=== PATIENT | female | born 1960 | race Caucasian/White ===

== ENCOUNTER → 2017-04-26 | Outpatient (CLI) | payer OTHER ==
[~2017-04-26] MED LIST: ASPI81TA25 PO; VERA1TAB53 PO
--- NOTE | 2017-04-26 13:35 | MAMMOGRAPHY REPORT ---
BILATERAL DIGITAL SCREENING MAMMOGRAM TOMOSYNTHESIS WITH CAD: 04/26/2017 CLINICAL HISTORY: Routine screening. Patient has no complaints. TECHNIQUE: Breast tomosynthesis in addition to standard 2D mammography was performed. Current study was also evaluated with a Computer Aided Detection (CAD) system. COMPARISON: Comparison is made to exams dated: 04/20/2016 mammogram, 04/15/2015 mammogram, 04/09/2014 ma mmogram, 04/03/2013 mammogram, 03/28/2012 mammogram, and 05/03/2005 mammogram - [facility]. BREAST COMPOSITION: The tissue of both breasts is almost entirely fatty. FINDINGS: No suspicious masses, calcifications, or areas of architectural distortion are noted in ei ther breast. There has been no significant interval change compared to prior exams. IMPRESSION: ACR BI-RADS CATEGORY 1: NEGATIVE There is no mammographic evidence of malignancy. A 1 year screening mammogram is recommended. The pa tient will receive written notification of the results. Approximately 10% of breast cancers are not detected with mammography. A negative mammographic report should not delay biopsy if a clinically suggestive mass is present. Vivi Saini M.D. /:04/26/2017 08:28:26 Design Eng: Pau KAM(Racheal)(Meir)(BD), [facility] letter sent: Normal 1/2 BI-RADS Code: ACR BI-RADS Category 1: Negative
== END | disposition home or self-care (01) ==
LOC: C.MAMM 08:02
PROVIDERS: ATTEND Internal Medicine
DX: Z12.31 Encounter for screening mammogram for malignant neoplasm of breast (principal)

== ENCOUNTER 2022-11-27 07:58 | Observation (INO) ==
--- NOTE | 2022-11-05 10:11 | PAT Medication Instructions ---
Medication Instructions Date of Service November 05, 2022 Home Medications albuterol sulfate 90 mcg/actuation breath activated powder inhaler 1 inh inhalation QID PRN amitriptyline 25 mg tablet 25 mg PO HS PRN aspirin 81 mg tablet,delayed release 81 mg PO QAM atorvastatin 40 mg tablet 40 mg PO QAM duloxetine 20 mg capsule,delayed release 20 mg PO BID omeprazole 20 mg capsule,delayed release 40 mg PO QAM amlodipine 2.5 mg tablet 2.5 mg PO DAILY amlodipine 5 mg tablet 5 mg PO QAM cholecalciferol (vitamin D3) 25 mcg (1,000 unit) capsule (Vitamin D3) 25 mcg PO QAM valsartan 160 mg tablet 160 mg PO QAM Continue as directed amlodipine 2.5 mg tablet 2.5 mg PO DAILY DO NOT take the morning of surgery cholecalciferol (vitamin D3) 25 mcg (1,000 unit) capsule (Vitamin D3) 25 mcg PO QAM valsartan 160 mg tablet 160 mg PO QAM Take morning of surgery With a small sip of water, OTHERWISE NOTHING TO EAT OR DRINK AFTER MIDNIGHT: albuterol sulfate 90 mcg/actuation breath activated powder inhaler 1 inh inhalation QID PRN(use if needed; please bring with you to hospital day of surgery if possible) aspirin 81 mg tablet,delayed release 81 mg PO QAM (unless directed otherwise by surgeon) atorvastatin 40 mg tablet 40 mg PO QAM duloxetine 20 mg capsule,delayed release 20 mg PO BID omeprazole 20 mg capsule,delayed release 40 mg PO QAM amlodipine 5 mg tablet 5 mg PO QAM Take evening before surgery albuterol sulfate 90 mcg/actuation breath activated powder inhaler 1 inh inhalation QID PRN(if needed) amitriptyline 25 mg tablet 25 mg PO HS PRN(if needed) duloxetine 20 mg capsule,delayed release 20 mg PO BID Other Notes If you have any questions please call us at [phone] or [phone] or [phone] or [phone]
--- NOTE | 2022-11-09 14:33 | Anesthesiology Consultation ---
Date of Service November 09, 2022 Assessment & Plan (1) Encounter for pre-operative examination: - awaiting PCP clearance. Optimization note sent regarding above, patient states will also call PCP regarding symptoms. - lightheadedness: different from usual vertigo. Occasional, ongoing for several weeks-months, denies current symptoms. Denies presyncope. Worsens with knee pain or Claritin dosing. Hx chronic vertigo with improvement with PT. Denies associated dysphagia, difficulty speaking, visual changes, numbness, weakness or headache with lightheadedness. Denies current symptoms. She was advised to contact PCP, seek prompt medical care if recurrence. She verbalized understanding and agreement, denied questions or concerns. - Outpatient joint assessment: Patient is not recommended candidate for outpatient joint program from anesthesia standpoint. Pt aware and agreeable to staying overnight. Surgeon's office notified. Chart Review Chart Review: Pending: Refer to Additional Notes / Consult section and Patient seen in Pre Admission Testing Teaching & Discussion Pre-Anesthesia Teaching/Discussion Notes: Instructed NPO after midnight before surgery, except medications with 15 cc of water. Medication instructions provided according to the PAT guidelines. History Surgery Operation Date: 11/27/22 07:00 Proposed Procedures p Right Total Knee Arthroplasty - Charan Monreal MD Height/Weight Height: 5 ft 7.25 in Weight: 105.6 kg Allergies Allergy/AdvReac Type Severity Reaction Status Date / Time sulfamethoxazole Allergy Mild Rash Verified 11/05/22 08:04 [From Bactrim] trimethoprim [From Bactrim] Allergy Mild Rash Verified 11/05/22 08:04 Medications Home Medications Medication Instructions Recorded Confirmed Last Taken albuterol sulfate 90 mcg/actuation 1 inh inhalation QID PRN sob 07/09/22 11/05/22 Unknown breath activated powder inhaler amitriptyline 25 mg tablet 25 mg PO HS PRN Sleep 07/09/22 11/05/22 07/30/22 aspirin 81 mg tablet,delayed 81 mg PO QAM 07/09/22 11/05/22 07/30/22 release atorvastatin 40 mg tablet 40 mg PO QAM 07/09/22 11/05/22 07/30/22 duloxetine 20 mg capsule,delayed 20 mg PO BID 07/09/22 11/05/22 07/30/22 release omeprazole 20 mg capsule,delayed 40 mg PO QAM 07/09/22 11/05/22 07/30/22 release amlodipine 2.5 mg tablet 2.5 mg PO DAILY 11/05/22 11/05/22 Unknown amlodipine 5 mg tablet 5 mg PO QAM 11/05/22 11/05/22 Unknown cholecalciferol (vitamin D3) 25 25 mcg PO QAM 11/05/22 11/05/22 Unknown mcg (1,000 unit) capsule (Vitamin D3) valsartan 160 mg tablet 160 mg PO QAM 11/05/22 11/05/22 Unknown Past Medical History Medical History (Updated 11/09/22 @ 14:51 by Katherine Hand PA-C) Anxiety and depression Fibromyalgia GERD (gastroesophageal reflux disease) controlled, stable per pt History of anemia History of COVID-19 2020>symptoms resolved History of hypothyroidism resolved on own History of kidney stones no surgery required History of TIA (transient ischemic attack) x 4 *last event over 12 years ago (no deficits) Hyperlipidemia Hypertension typically elevated per pt Migraine Restless leg syndrome Sleep apnea CPAP-adjusting to tx, intermittent use Transient global amnesia 2013 Vertigo chronic Patient denies h/o seizures, heart attack, heart failure, DM, blood clots or blood transfusions. Exercise / Class Metabolic Activity II 4-5 Yardwork/Stairs/Walk up hill (denies chest discomfort or shortness of breath with 1 FOS) Past Family History Family History Other No family history of adverse response to anesthesia Past Surgical History Surgical History History of cataract surgery bilateral History of colonoscopy History of total knee replacement left [place] teeth removed Past Anesthesia History No Hx of Anesthesia Complications and No Family Hx of Anesthesia Complications History of PONV No Hx of PONV and No Hx of Motion Sickness Social History Smoking Status: Never smoker Do You Dip or Chew Tobacco: No Hx Alcohol Use: Yes Alcohol type: hard liquor alcohol intake frequency: holidays/special occasions only Hx Substance Use: No substance use type: does not use Review of Systems Patient reports occasional lightheadedness without presyncope ongoing x several weeks-months, worsens with knee pain or Claritin dosing. Notes dx vertigo with improvement with vertigo. Denies associated dysphagia, difficulty speaking, visual changes, numbness, weakness or headache with lightheadedness. States does not feel like usual vertigo, denies current symptoms. She was advised to contact PCP, seek prompt medical care if recurrence. Patient denies chest pain, shortness of breath, dyspnea on exertion, fever, chills, cough, wheezing, or palpitations. Physical Exam Vital Signs Vitals BP 128/80 P 75 TEMP 98.3 SP02 97% on RA RESP 18 Physical Full cervical extension range of motion without pain TMD 3.5 finger breadths Mallampati Score 2 Dentition: intact, denies chipped or loose teeth, caps/crowns, implants or bridges Lungs: normal respiratory effort. Clear throughout to auscultation, no adventitious breath sounds Cardiac: regular rate and rhythm, 2/6 systolic murmur Carotid arteries: negative bruit bilat Lab Results Anesthesia Preop Results Results Anesthesia Widget: WBC 6.52 K/ul (4.8-10.8) 11/09/22 Hgb 14.9 g/dl (12.0-16.0) 11/09/22 Hct 44.3 % (37.0-47.0) 11/09/22 Plt 216 K/uL (130-400) 11/09/22 Na 142 mmol/L (136-145) 11/09/22 K 4.2 mmol/L (3.5-5.1) 11/09/22 Cl 108 mmol/L (98-107) H 11/09/22 CO2 27 mmol/L (21-32) 11/09/22 BUN 16 mg/dl (6-23) 11/09/22 Creat 0.80 mg/dl (0.6-1.2) 11/09/22 Glucose Level 82 mg/dl (70-99(Fasting)) 11/09/22 PT 11.1 Seconds (9.0-12.0) 11/09/22 PTT 27.0 Seconds (21.0-31.0) 11/09/22 INR 1.0 (0.9-1.1) 11/09/22 Blood Type O Positive 11/09/22 Antibody Screen NEGATIVE 11/09/22 Testing Electrocardiogram Date: 11/09/22 NSR with sinus arrhythmia, rate 71 bpm Chest X-Ray Date: 11/09/22 No lines and tubes are seen. The cardiomediastinal silhouette is normal. The lungs are clear. No evidence of pleural effusion or pneumothorax. IMPRESSION: No acute chest disease. Echocardiogram Date: 09/19/18 EF 64% Mild cLVH No LV wall motion abnormality Grade I diastolic dysfunction No significant valvular pathology COVID-19 Risk Screen Screening Information COVID-19 Screen Date: 11/09/22 Exposure 21 Days Family/Household +COVID Last 21 Days: No Exposure 10 Days Any COVID Exposure Last 10 Days: No Symptoms Last 10 Days Experienced COVID Sx Last 10 Days: No + COVID 0-90 Days COVID + in Last 0-90 Days: No
[~2022-11-27 07:58] MED LIST changes: -ASPI81TA25 PO; +BUPIVACAINE 0.5 % 5 MG/1 ML PF 10ML VIAL ONE; +BUPIVACAINE LIPOSOME/PF 266 MG, BUPIVACAINE/EPINEPHRINE 50 ML, SODIUM CHLORIDE 0.9% PF ... INFIL SCH; +CeleBREX 200 MG CAP PO SCH; +FAMOTIDINE 20 MG TAB PO SCH; +LR 500ML BOLUS, THEN 15ML/HR IV SCH; +LR 60ML/HR IV SCH; +METOCLOPRAMIDE HCL 10 MG TABLET PO SCH; +ROPIVACAINE 0.5% 5 MG/ML 30 ML VIAL ONE; +TRANEXAMIC ACID 1,000 MG **IV Intra-op IV SCH; -VERA1TAB53 PO; +ceFAZolin 2000MG 2,000 MG/15 ML SYR IV SCH; +dexAMETHasone 10 MG in SYRINGE 0 ML IV SCH
--- NOTE | 2022-11-27 08:52 | History & Physical Bridge Note ---
Date of Service November 27, 2022 History & Physical Bridge Note I have examined the patient, reviewed the History & Physical and in the interval since the performance of the History & Physical I have noted the following changes of clinical significance: no changes noted
[2022-11-27] MEDS: ACETAMINOPHEN 500 MG TAB PO SCH ×4 (08:55→22:32)
[2022-11-27] MEDS: Scopolamine 1 MG TDSY TD SCH ×2 (08:56→17:24)
[2022-11-27] MEDS ORDERED: ONDANSETRON INJ 2 MG/ML 2 ML VIAL IV PRN ×3 (09:14→14:36)
[2022-11-27] MEDS ORDERED: ATROPINE SULFATE 0.1 MG/ML 10ML SYR IV PRN ×2 (09:14→09:41)
[2022-11-27] MEDS ORDERED: ePHEDrine sulfate 50 MG/ML AMP IV PRN ×2 (09:14→09:41)
[2022-11-27] MEDS ORDERED: fentaNYL citrate PF 100 MCG/2 ML VIAL IV PRN ×2 (09:14→09:41)
[2022-11-27] MEDS ORDERED: PROPOFOL IV EMULSION 10 MG/ML 20 ML VIAL IV ONE (09:55)
[2022-11-27] MEDS ORDERED: fentaNYL citrate PF 100 MCG/2 ML VIAL ONE (09:55)
[2022-11-27] MEDS ORDERED: MIDAZOLAM HCL 1 MG/ML 2ML VIAL ONE ×2 (09:55)
[2022-11-27] MEDS ORDERED: LIDOCAINE 2% MPF LOCAL 5 ML VIAL ONE (09:55)
[2022-11-27] MEDS ORDERED: BUPIVACAINE/EPINEPHRINE 0.25% 1:200,000 30 ML VIAL ONE (10:06)
[2022-11-27] MEDS ORDERED: SODIUM CHLORIDE 0.9% PF 50 ML VIAL ONE (10:07)
[2022-11-27] MEDS ORDERED: BUPIVACAINE LIPOSOME 1.3% 266 MG/20 ML VIAL ONE (10:07)
[2022-11-27] MEDS ORDERED: ONDANSETRON INJ 2 MG/ML 2 ML VIAL ONE (10:38)
[2022-11-27] MEDS ORDERED: KETAMINE 50 MG/5 ML SYRINGE ONE (10:38)
[2022-11-27] MEDS ORDERED: DEXAMETHASONE SOD INJ 4 MG/ML VIAL ONE (10:49)
[2022-11-27] MEDS ORDERED: PHENYLEPHRINE 100MCG/ML 5ML SYR ONE (10:52)
--- NOTE | 2022-11-27 12:11 | Operative Report ---
PG Post Operative Report Pre & Post Diagnosis Operation Date: 11/27/22 10:40 Pre-Op Diagnosis: Right Knee Advanced Degenerative Joint Disease Post-Op Diagnosis: Right Knee Advanced Degenerative Joint Disease I identified the patient and participated in the time-out.: Yes Procedure Operation Date: 11/27/22 10:40 Actual Procedures p Right Total Knee Arthroplasty(Right) - Charan Monreal MD Surgeon Charan Monreal MD [employer] Abdullahi Pack PA-C Estimated Blood Loss 50 Findings Consistent with Post-Op Diagnosis Operative findings were advanced right knee DJD. She had extensive grade 4 [id number] disease and eburnation anteromedial compartment. She had some spotty grade 4 changes laterally and pretty diffuse grade 4 changes of the patellofemoral joint. Moderate-sized joint effusion. Specimens Right knee sent for pathology. Anesthesia Type Spinal MAC Complications none Disposition Accompanied Patient To Recovery: No Indications Patient is a 62-year-old female is had a long history of knee pain discomfort and arthritic changes. She been through extensive conservative treatment. She did have her left knee replaced in the past elsewhere and is done well from that. She continued to be limited by right knee pain discomfort. She elected to proceed with right total knee arthroplasty. Description of Procedure Operative implants consist of: 1 Biomet Vanguard size 65 right posterior stabilized femoral component. 2. Biomet size 71 tibial tray. 3. 12 mm posterior stabilized polyethylene insert. 4. 31 x 8 all poly patella. The patient was taken the operating, identified, placed on the operating table supine position protectors were properly padded. IV antibiotics arrived by anesthesia team. A spinal anesthetic and abductor canal block had been provided in the holding area. A Tatum catheter was placed in sterile fashion. A right Thigh high tourniquet was then placed. The right lower extremities then prepped and draped in the usual sterile fashion. The right leg was elevated and exsanguinated with use of an Esmarch and the tourniquet was placed at 300 mmHg. An anterior approach of the right knee was then performed to longitudinal incision centered over the patella. Sharp dissection was carried through subcutaneous tissue down the extensor mechanism. A medial parapatellar arthrotomy incision was made. Some subperiosteal dissection was carried out medially. The fat pad was dissected from Neath patella tendon. The lateral patellofemoral ligament was released. Patella was subluxated laterally and the knee was flexed. The osteophytes taken off distal femur. The ACL and PCL were then released from distal femur the tibia subluxated anteriorly. External tibial alignment jig was then placed in the interface the tibia and adjusted 14 mm medially. Proximal tibial cut was made remove about a millimeter bone from most deficient aspect medial tibial plateau. Some osteophytes were taken off medial and posterior medially. The tibia was sized to a size 71. Attention drawn the femur. The distal fibula with a sharp drop with intramedullary canal was suction. A right 5 degree valgus cutting guide was placed. Distal femoral cutting block was pinned in place. Distal femoral cut was made to take an additional 3 mm of bone off distal femur. The femur was then sized to a size 65. The AP cutting block was pinned parallel to the epicondylar axis which was 3 degrees of external rotation. Anterior cut, anterior chamfer, posterior cut, posterior chamfer cuts were made. The box cutting guide was placed in just slight lateral and the box cut was made. The knee was flexed with the remnants of the medial and lateral menisci were excised. The osteophytes taken off the posterior aspect the femur. A trial femoral component was placed for the tibial tray was pinned in maximum external rotation and the drill and stem punch were used to create defect in proximal tibia for the tibial tray. The knee was then trialed and a 12 mm insert fit most appropriately. Attention drawn the patella. The patella was cleaned of all soft tissues. Patella thickness measured 22 mm in thickness was cut down to 13. It was sized to a size 31 patella. The lug holes were drilled for 31 patella. The lateral osteophyte was removed. Patella button was placed. Knee was taken through range of motion patella tracked nicely with no thumbs test. Attention drawn to placing permanent components. Nupathe all trial components were removed. Bone plug was placed in the distal femur limit blood loss. Double batch Pal[place]os G cement was mixed. A Biomet Vanguard size 65 right posterior stabilized femoral component, size 71 tibial tray, a 12 mm posterior stabilized polyethylene insert, 31 x 8 all Paller patella then cemented in place. The knee was brought out into full extension till cement hardened. Final cement check was then performed. Pericapsular tissues were injected with total of 100 cc of combination of 20 cc of Exparel, 30 cc normal saline, 50 cc of quarter percent Marcaine with epinephrine. Patient did receive 1 g tranexamic acid. The tourniquet was then let down for final tourniquet time of 53 minutes. Hemostasis reduced electrocautery. Extensor mechanism closed with combination 1 PDS suture #1 Vicryl suture in [id number] fashion. Extensor mechanism checked found to be intact the tang bcutaneous tissue then closed with 2 Dexon suture in a buried erupted fashion skin was closed skin pk. Leg was then cleaned and dried and sterile dressed with Xeroform,, 4 fours, sterile cast padding, Xavi bandage were applied. Patient was then transferred to the recovery room in stable condition. The patient tolerated the procedure well and there were no complications. Abdullahi aPck, my physician sales assistant institutional sales, was present for the entire procedure. His assistance was essential and required for appropriate patient positioning, prepping and draping, surgical exposure, performing the technical details of the operation, placement the implants, closure of the wound, and placement of the sterile bandage. I attest to the content of the Intraoperative Record and any orders documented therein. Any exceptions are noted below.
--- NOTE | 2022-11-27 12:56 | XRay Report ---
RIGHT KNEE 2 VIEWS History: Right total knee arthroplasty. Degenerative arthritis. Postop. FINDINGS: The patient is status post a right total knee arthroplasty. The hardware is intact. No frac ture or dislocation. Skin pk are in place. IMPRESSION: Right total knee arthroplasty. No evidence for hardware complication. ACT 112: Negative or not required by law. Electronically signed by: Byron Marinelli M.D. 11/27/2022 12:54 PM
--- NOTE | 2022-11-27 13:55 | Anesthesiology Progress Note ---
Date of Service November 27, 2022 Anesthesia Post Procedure Vital Signs Vital Signs: Temp Pulse Pulse Resp BP Pulse Ox O2 Del Method 11/27/22 13:25 79 17 127/72 94 Room Air 11/27/22 13:15 37.1 C 77 21 127/88 96 Room Air 11/27/22 13:05 74 19 127/73 95 Room Air 11/27/22 12:55 74 20 144/74 H 98 Room Air 11/27/22 12:45 78 17 118/94 95 Room Air 11/27/22 12:25 76 17 125/72 97 Room Air 11/27/22 12:35 73 19 136/76 97 Room Air 11/27/22 12:15 75 16 134/70 95 Room Air 11/27/22 12:09 36.8 C 78 18 131/75 96 Room Air 11/27/22 08:53 37 C 78 20 186/100 H 95 Room Air Pain Intensity Lower Back: Pain Intensity: 0 Transfer of Care Handoff Completed per policy Notes Mental Status: alert / awake / arousable and participated in evaluation Patient Amnestic to Procedure: Yes Nausea / Vomiting: adequately controlled Pain: adequately controlled Airway Patency, RR, SpO2: stable & adequate BP & HR: stable & adequate Hydration State: stable & adequate Neuraxial Anesthesia: was administered and sensory block is resolving Anesthetic Complications: no major complications apparent and Pt Satisfied with anesthetic care
[2022-11-27] MEDS ORDERED: HYDROmorphone INJ 0.5 MG/0.5 ML SYR IV PRN (14:36)
[2022-11-27] MEDS ORDERED: METOCLOPRAMIDE HCL INJ 5 MG/ML 2 ML VIAL IV PRN (14:36)
[2022-11-27] MEDS ORDERED: AMITRIPTYLINE HCL 25 MG TAB PO PRN (14:36)
[2022-11-27] MEDS ORDERED: bisacodyL 10 MG SUPP PR PRN (14:36)
[2022-11-27] MEDS ORDERED: ALUMINUM/MAGNESIUM SUSP 30 ML UDC PO PRN (14:36)
[2022-11-27] MEDS ORDERED: NALOXONE HCL 0.4 MG/1 ML VIAL/CARP IV PRN (14:36)
[2022-11-27] MEDS ORDERED: MAGNESIUM HYDROXIDE SUSP 30 ML UDC PO PRN (14:36)
[2022-11-27] MEDS ORDERED: oxyCODONE HCL IR 5 MG TAB (IMMEDIATE RELEASE) PO PRN (14:36)
[2022-11-27] MEDS ORDERED: ALBUTEROL HFA 8 GM INHALER INH PRN (14:50)
[2022-11-27] MEDS: SODIUM CHLORIDE 0.9% 1000ML 1,000 ML IV SCH (17:20)
[2022-11-27] MEDS: Scopolamine CHECK PATCH PLACEMENT SCH (17:23)
[2022-11-27] MEDS: KETOROLAC 30 MG/ML VIAL IV SCH ×2 (17:26→20:34)
[2022-11-27] MEDS ORDERED: TRANEXAMIC ACID / 0.7% NACL 1,000 MG/100 ML BAG IV SCH (18:00)
[2022-11-27] MEDS: ASCORBIC ACID 500 MG TAB PO SCH (18:43)
[2022-11-27] MEDS: ceFAZolin 2000MG 2,000 MG/15 ML SYR IV SCH (18:47)
[2022-11-27] MEDS: ASPIRIN 81 MG ECTAB PO SCH (20:34)
[2022-11-27] MEDS: DOCUSATE SODIUM 100 MG CAP PO SCH (20:35)
[2022-11-27] MEDS: DULoxetine HCL 20 MG CAP PO SCH (20:37)
[2022-11-27] MEDS ORDERED: SENNA 8.6 MG TAB PO SCH (21:00)
[2022-11-28] MEDS: Scopolamine CHECK PATCH PLACEMENT SCH ×2 (00:47→08:52)
[2022-11-28] MEDS: ceFAZolin 2000MG 2,000 MG/15 ML SYR IV SCH (03:02)
[2022-11-28] MEDS: KETOROLAC 30 MG/ML VIAL IV SCH ×2 (03:02→08:53)
[2022-11-28] MEDS: SODIUM CHLORIDE 0.9% 1000ML 1,000 ML IV SCH (03:06)
[2022-11-28] MEDS: ACETAMINOPHEN 500 MG TAB PO SCH (06:33)
[2022-11-28] MEDS ORDERED: dexAMETHasone 10 MG in SYRINGE 0 ML IV SCH (08:00)
[2022-11-28 08:35] LABS: Hematocrit (blood only) 38.9 % (37.0-47.0); Hemoglobin 12.8 g/dl (12.0-16.0); Mean Corpuscular Hemoglobin 28.3 pg (25.0-34.0); Mean Corpuscular Hgb Conc 32.9 g/dL (32.0-36.0); Mean Corpuscular Volume 85.9 fL (80.0-100.0); Mean Platelet Volume 10.6 fL (9.4-12.4); Platelet Count 292 K/uL (130-400); RDW Coefficient of Variation 12.4 % (11.5-14.5); RDW Standard Deviation 39.1 fL (36.4-46.3); Red Blood Count 4.53 M/uL (4.20-5.40); White Blood Count 17.55 K/ul (4.8-10.8)
--- NOTE | 2022-11-28 08:45 | Progress Notes ---
SUBJECTIVE: A 62-year-old female postoperative day 1 from a right knee replacement. She is doing pr lisa well. Some moderate pain, but controlled. No chest pain or shortness of breath. Not feeling d miguel or lightheaded. OBJECTIVE: VITAL SIGNS: Temperature 36.6. Vital signs are stable. GENERAL: Reveals a pleasant, middle-aged female. She is sitting up in bed, looks pretty comfortable this morning. LUNGS: Clear to auscultation. HEART: Regular rate and rhythm. ABDOMEN: Soft, nontender, nondistended. EXTREMITIES: Grossly neurovascularly intact except as follows. Examination of the right leg reveals the dressing to be clean, dry and intact. She can dorsiflex and plantarflex her foot appropriately. She is neurologically intact. She can do a straight leg raise. LABORATORY DATA: Labs are pending. ASSESSMENT: A 62-year-old female postoperative day 1 from right knee replacement, doing pretty well. Pain is controlled. She is neurologically intact. PLAN: 1. DVT prophylaxis includes thigh-high TEDs, SCDs, and aspirin twice a day. 2. PT/OT, weightbear as tolerated. Right total knee protocol. 3. Pain control, doing okay with current pain regimen. 4. Disposition: Plan to discharge to home with some home health later today if does okay in therapy . Job ID: [id number]
[2022-11-28] MEDS: ASPIRIN 81 MG ECTAB PO SCH (08:50)
[2022-11-28] MEDS: DULoxetine HCL 20 MG CAP PO SCH (08:50)
[2022-11-28] MEDS: DOCUSATE SODIUM 100 MG CAP PO SCH (08:50)
[2022-11-28] MEDS: ASCORBIC ACID 500 MG TAB PO SCH (08:52)
[2022-11-28] MEDS ORDERED: DOCUSATE SODIUM/SENNA 50/8.6MG TAB PO SCH (09:00)
[2022-11-28] MEDS ORDERED: VALSARTAN 80 MG TAB PO SCH (09:00)
[2022-11-28] MEDS ORDERED: PANTOprazole 40 MG TAB PO SCH (09:00)
[2022-11-28] MEDS ORDERED: CHOLECALCIFEROL 1,000 UNITS 25 MCG TAB PO SCH (09:00)
[2022-11-28] MEDS ORDERED: amLODIPine BESYLATE 5 MG TAB PO SCH ×2 (09:00)
[2022-11-28] MEDS ORDERED: ATORVASTATIN 40 MG TAB PO SCH (09:00)
[2022-11-28] MEDS ORDERED: MULTIVITAMIN TAB PO SCH (09:00)
[2022-11-28 09:37] LABS: Calcium 8.7 mg/dl (8.6-10.3); Potassium 4.4 mmol/L (3.5-5.1)
[2022-11-28 09:42] LABS: Creatinine Clr Calc Pharmacy 69.1 ml/min; Est GFR (Non-African American) 59.5 ml/min
--- NOTE | 2022-11-30 18:46 | Discharge Summary ---
Date of Service November 30, 2022 Discharge Data Procedures Performed Operation Date: 11/27/22 10:40 Actual Procedures p Right Total Knee Arthroplasty(Right) - Charan Monreal MD Hospital Course (1) Status post total right knee replacement: This is a 62 year old patient admitted on 11/27/22 and underwent total knee arthroplasty. She tolerated the procedure well and there were no complications. Transferred to the PACU post op and later to the orthopedic floor for further care. She was given ancef for antibiotic prophylaxis. She was also given RANDELL stockings, SCDs, and aspirin for DVT prophylaxis. Hemoglobin, hematocrit, and vital signs were monitored during her hospital stay and remained stable. Did not require any blood transfusions. There were no complications during her hospital stay. By post op day #1 the patient was tolerating a regular diet, pain was reasonably controlled with oral pain medicine, and she was participating in physical therapy. On post op day #1 the patient was discharged home and set up with home health care. She was given printed discharge instructions including prescriptions for extra strength tylenol, aspirin, cefadroxil, ketorolac, zofran, senokot, and oxycodone. Continue physical therapy, weight bearing as tolerated. Continue RANDELL stockings. Follow up approximately 2 weeks post op or sooner if there are problems or concerns. Coding Level of Care Code None Diagnoses Status post total right knee replacement Z96.651
== END 2022-11-28 11:28 | disposition home health service (06) ==
LOC: PACUINP 07:58 → ASU 07:58 → 3N 14:54
DX: Z86.73 Personal history of transient ischemic attack (TIA), and cerebral infarction without residual deficits; Z79.899 Other long term (current) drug therapy; Z86.16 Personal history of COVID-19; Z88.2 Allergy status to sulfonamides; Z79.82 Long term (current) use of aspirin; M17.11 Unilateral primary osteoarthritis, right knee